=== PATIENT | male | born 1980 | race Caucasian/White ===

== ENCOUNTER 2017-02-14 15:26 | Emergency (ER) | payer MEDICARE, OTHER ==
[~2017-02-14] VITALS: Ht 188 cm; Wt 111.3 kg
[~2017-02-14 15:26] MED LIST: CLON0.5T OR; DEPA250T2 OR; DEPA250T3 OR; DULERA INH; K-TA10TA OR; LAVITRA PO; LUNE2TAB OR; MAXA5TAB PO; MORP15TA4 OR; PERC5TAB8 PO; PROZ20CA OR; ROBA500T OR; tylenol pm PO
[2017-02-14 15:27] VITALS: BP 133/70
[2017-02-14] MEDS ORDERED: OXAY1TAB (15:40)
[2017-02-14] MEDS ORDERED: PROZ40CA PO (15:40)
[2017-02-14] MEDS ORDERED: ADDE10CA3 PO (15:40)
[2017-02-14] MEDS ORDERED: PRAV40TA2 PO (15:40)
[2017-02-14] MEDS ORDERED: BUPR300T34 PO (15:40)
[2017-02-14] MEDS ORDERED: TOPI200T7 PO (15:40)
[2017-02-14] MEDS ORDERED: OMEP40CA2 PO (15:40)
[2017-02-14] MEDS ORDERED: testosterone inj (15:40)
[2017-02-14] MEDS ORDERED: DIAZ10TA2 PO (15:42)
[2017-02-14] MEDS ORDERED: LATU80TA PO (15:42)
== END 2017-02-14 16:47 | disposition home or self-care (01) ==
LOC: M ED 15:26
DX: J02.9 Acute pharyngitis, unspecified (principal); F17.210 Nicotine dependence, cigarettes, uncomplicated

== ENCOUNTER 2017-07-19 18:12 | Emergency (ER) | payer MEDICARE, MEDICAID ==
[~2017-07-19] VITALS: Ht 188 cm; Wt 114.5 kg
[~2017-07-19 18:12] MED LIST changes: +ADDE10CA3 PO; +BUPR300T34 PO; +DIAZ10TA2 PO; +LATU80TA PO; +OMEP40CA2 PO; +OXAY1TAB; +PRAV40TA2 PO; +PROZ40CA PO; +TOPI200T7 PO; +testosterone inj
[2017-07-19] MEDS ORDERED: PROAAER10 INH (18:32)
[2017-07-19] MEDS ORDERED: TESTERONE IM (18:32)
[2017-07-19] MEDS ORDERED: [UNRECOGNIZED DRUG - OTHER] PO (18:32)
--- NOTE | 2017-07-19 21:20 | REPUSA ---
CT of the cervical spine Clinical history: Pain. Technique: Multiple axial CT images were obtained through the cervical spine without administration o f contrast. Coronal and sagittal 3-D reconstructed images were also obtained. Comparison: None. Findings: The cervical vertebral bodies are in satisfactory positioning and alignment. Reversal curvature the c ervical spine is noted, likely secondary to splinting from pain. No fractures or dislocations are dem onstrated. The odontoid process is intact. Intervertebral disc spaces are well-maintained. There is n o evidence of facet subluxation. The neural foramen appear grossly patent. The cervical cranial junct ion is intact. The cervical spinal canal demonstrates normal caliber and contour without evidence of spinal stenosis. The surrounding soft tissues are within normal limits. Impression: Unremarkable CT examination of the cervical spine.
[2017-07-19 22:12] VITALS: BP 126/52
== END 2017-07-19 22:13 | disposition home or self-care (01) ==
LOC: M ED 18:12
DX: M54.12 Radiculopathy, cervical region (principal); F33.9 Major depressive disorder, recurrent, unspecified; F41.9 Anxiety disorder, unspecified; F17.210 Nicotine dependence, cigarettes, uncomplicated; Z79.899 Other long term (current) drug therapy

== ENCOUNTER 2017-08-31 22:25 | Emergency (ER) | payer OTHER, MEDICARE, MEDICAID ==
[2017-08-31] MEDS: NS 1,000 ML IV (23:00)
[2017-08-31] MEDS ORDERED: ISOVUE-370 76% 100ML VIAL (Q9967) As Ordered (23:01)
[2017-08-31 23:21] LABS: BASO # 0.1 10^3/uL (0.0-0.2); BASO % 0.4 % (0.0-1.0); EOS # 0.2 10^3/uL (0.0-0.50); EOS % 1.6 % (0.0-3.0); HEMATOCRIT 45.5 % (42.0-52.0); HEMOGLOBIN 15.5 g/dl (14.0-18.0); IMMATURE GRANULOCYTE # 0.1 10^3/uL (0-0); IMMATURE GRANULOCYTE % 0.5 % (0-0); LYMPH # 2.2 10^3/uL (1.5-4.5); LYMPH % 17.9 % (24.0-44.0); MEAN CORPUSCULAR HEMOGLOBIN 30.1 pg (27.0-33.0); MEAN CORPUSCULAR HGB CONC 34.1 g/dl (32.0-36.5); MEAN CORPUSCULAR VOLUME 88.3 fl (80.0-96.0); MONO # 0.8 10^3/uL (0.0-0.8); MONO % 6.4 % (0.0-5.0); NEUTROPHILS # 9.1 10^3/uL (1.8-7.7); NEUTROPHILS % 73.2 % (36.0-66.0); PLATELET COUNT, AUTOMATED 193 10^3/uL (150-450); RED BLOOD COUNT 5.15 10^6/uL (4.30-6.10); RED CELL DISTRIBUTION WIDTH 13.7 % (11.5-14.5); WHITE BLOOD COUNT 12.5 10^3/uL (4.0-10.0)
[2017-08-31 23:33] LABS: INR 0.94; PROTHROMBIN TIME 12.7 SECONDS (12.4-14.5)
[2017-08-31 23:41] LABS: ALBUMIN 3.8 GM/DL (3.2-5.2); ALBUMIN/GLOBULIN RATIO 1.27 (1.00-1.93); ALKALINE PHOSPHATASE 109 U/L (45-117); ALT/SGPT 34 U/L (12-78); ANION GAP 7 MEQ/L (8-16); AST/SGOT 27 U/L (7-37); BILIRUBIN,DIRECT < 0.1 MG/DL (0.0-0.2); BILIRUBIN,TOTAL 0.4 MG/DL (0.2-1.0); BLOOD UREA NITROGEN 9 MG/DL (7-18); CALCIUM LEVEL 7.8 MG/DL (8.5-10.1); CARBON DIOXIDE LEVEL 27 MEQ/L (21-32); CHLORIDE LEVEL 105 MEQ/L (98-107); GLOMERULAR FILTRATION RATE > 60.0 (>60); GLUCOSE, FASTING 103 MG/DL (70-100); POTASSIUM SERUM 3.8 MEQ/L (3.5-5.1); SODIUM LEVEL 139 MEQ/L (136-145); TOTAL PROTEIN 6.8 GM/DL (6.4-8.2)
[2017-08-31 23:49] LABS: LIPASE 116 U/L (73-393)
[2017-09-01] MEDS: KETOROLAC 30 MG/ML VIAL (J1885) IV (00:15)
== END 2017-09-01 00:36 | disposition home or self-care (01) ==
LOC: M ED 09-01 00:36
DX: S16.1XXA Strain of muscle, fascia and tendon at neck level, initial encounter (principal); F17.200 Nicotine dependence, unspecified, uncomplicated; V49.40XA Driver injured in collision with unspecified motor vehicles in traffic accident, initial encounter; Y92.410 Unspecified street and highway as the place of occurrence of the external cause; Y93.89 Activity, other specified
CPT/HCPCS: Q9967

== ENCOUNTER 2017-09-18 11:32 | Emergency (ER) | payer MEDICARE, MEDICAID, OTHER ==
[2017-09-18] MEDS: KETOROLAC 60 MG/2 ML VIAL (J1885) IM (13:59)
[2017-09-18 14:05] LABS: BASO # 0.1 10^3/uL (0.0-0.2); BASO % 0.6 % (0.0-1.0); EOS # 0.2 10^3/uL (0.0-0.50); EOS % 1.8 % (0.0-3.0); HEMATOCRIT 47.6 % (42.0-52.0); HEMOGLOBIN 15.8 g/dl (14.0-18.0); IMMATURE GRANULOCYTE % 0.9 % (0-3.0); LYMPH # 2.6 10^3/uL (1.5-4.5); LYMPH % 25.3 % (24.0-44.0); MEAN CORPUSCULAR HEMOGLOBIN 29.4 pg (27.0-33.0); MEAN CORPUSCULAR HGB CONC 33.2 g/dl (32.0-36.5); MEAN CORPUSCULAR VOLUME 88.6 fl (80.0-96.0); MONO # 0.8 10^3/uL (0.0-0.8); MONO % 7.7 % (0.0-5.0); NEUTROPHILS # 6.6 10^3/uL (1.8-7.7); NEUTROPHILS % 63.7 % (36.0-66.0); PLATELET COUNT, AUTOMATED 206 10^3/uL (150-450); RED BLOOD COUNT 5.37 10^6/uL (4.30-6.10); RED CELL DISTRIBUTION WIDTH 13.5 % (11.5-14.5); WHITE BLOOD COUNT 10.4 10^3/uL (4.0-10.0)
[2017-09-18 14:23] LABS: ANION GAP 6 MEQ/L (8-16); BLOOD UREA NITROGEN 8 MG/DL (7-18); CALCIUM LEVEL 8.6 MG/DL (8.5-10.1); CARBON DIOXIDE LEVEL 29 MEQ/L (21-32); CHLORIDE LEVEL 106 MEQ/L (98-107); CREATININE FOR GFR 1.23 MG/DL (0.70-1.30); GLOMERULAR FILTRATION RATE > 60.0 (>60); GLUCOSE, FASTING 77 MG/DL (70-100); POTASSIUM SERUM 3.7 MEQ/L (3.5-5.1); SODIUM LEVEL 141 MEQ/L (136-145)
== END 2017-09-18 16:01 | disposition home or self-care (01) ==
LOC: M ED 11:32
DX: S39.012A Strain of muscle, fascia and tendon of lower back, initial encounter (principal); L03.312 Cellulitis of back [any part except buttock and flank]; X50.0XXA Overexertion from strenuous movement or load, initial encounter; Y92.9 Unspecified place or not applicable; Y93.89 Activity, other specified; I10 Essential (primary) hypertension; G89.29 Other chronic pain; M54.9 Dorsalgia, unspecified; M54.2 Cervicalgia; M25.519 Pain in unspecified shoulder; G43.909 Migraine, unspecified, not intractable, without status migrainosus; G47.30 Sleep apnea, unspecified; J45.909 Unspecified asthma, uncomplicated; K21.9 Gastro-esophageal reflux disease without esophagitis; F41.9 Anxiety disorder, unspecified; F32.9 Major depressive disorder, single episode, unspecified; F17.200 Nicotine dependence, unspecified, uncomplicated; Z79.899 Other long term (current) drug therapy
CPT/HCPCS: J1885

== ENCOUNTER 2018-01-05 08:48 | Day surgery (SDC) | payer MEDICARE, MEDICAID ==
[2018-01-05] MEDS: LR 1,000 ML IV (10:10)
[2018-01-05] MEDS ORDERED: ONDANSETRON 4MG/2ML VIAL (J2405) As Ordered (11:52)
[2018-01-05] MEDS ORDERED: fentaNYL 250 MCG/5 ML INJECTION (J3010) As Ordered (11:52)
[2018-01-05] MEDS ORDERED: dexameTHASONE 4 MG/ML 1ML VIAL (J1100) As Ordered (11:52)
[2018-01-05] MEDS ORDERED: MIDAZOLAM INJ 2 MG/2 ML VIAL (J2250) As Ordered (11:52)
[2018-01-05] MEDS ORDERED: ROCURONIUM BROMIDE 50 MG/5 ML VIAL As Ordered (11:52)
[2018-01-05] MEDS ORDERED: LIDOCAINE 2% INJ 100 MG/5 ML SDV (FOR ANES.) As Ordered (11:52)
[2018-01-05] MEDS ORDERED: PROPOFOL 200 MG/20 ML VIAL As Ordered (11:52)
[2018-01-05] MEDS: LIDOCAINE W/EPINEPHRINE 1% 20ML VIAL As Ordered (12:26)
[2018-01-05] MEDS ORDERED: GLYCOPYRROLATE INJ 0.2 MG/ML 2 ML VIAL As Ordered ×3 (12:28→12:40)
[2018-01-05] MEDS: EPINEPHrine 1MG/ML INJ 30ML MD-VIAL As Ordered (12:34)
[2018-01-05] MEDS ORDERED: NEOSTIGMINE 10 MG/10 ML VIAL (J2710) As Ordered (12:39)
[2018-01-05] MEDS ORDERED: HYDROCORTISONE 100 MG/2 ML VIAL (J1720) As Ordered (12:48)
[2018-01-05] MEDS ORDERED: ACETAMINOPH W/CODEINE #3 TAB UD PO (13:45)
[2018-01-05] MEDS ORDERED: fentaNYL 100 MCG/2 ML INJECTION (J3010) IV (13:45)
[2018-01-05] MEDS ORDERED: LR 1,000 ML IV ×2 (13:45)
[2018-01-05] MEDS ORDERED: ONDANSETRON 4MG/2ML VIAL (J2405) IV (13:45)
[2018-01-05] MEDS ORDERED: ALBUTEROL SULFATE 2.5 MG/0.5 ML INH NEB SOLN As Ordered (13:46)
[2018-01-05] MEDS: ALBUTEROL SULFATE 2.5 MG/0.5 ML INH NEB SOLN INH (13:47)
== END 2018-01-05 15:40 | disposition home or self-care (01) ==
LOC: M SDC 08:48
DX: J32.8 Other chronic sinusitis (principal); J45.909 Unspecified asthma, uncomplicated; G47.33 Obstructive sleep apnea (adult) (pediatric); M25.569 Pain in unspecified knee; F32.9 Major depressive disorder, single episode, unspecified; F41.9 Anxiety disorder, unspecified; M54.2 Cervicalgia; G89.29 Other chronic pain; S14.109S Unspecified injury at unspecified level of cervical spinal cord, sequela; M25.519 Pain in unspecified shoulder; M12.9 Arthropathy, unspecified; G43.909 Migraine, unspecified, not intractable, without status migrainosus; G62.9 Polyneuropathy, unspecified; E78.00 Pure hypercholesterolemia, unspecified; K21.9 Gastro-esophageal reflux disease without esophagitis; Z79.899 Other long term (current) drug therapy; Z72.0 Tobacco use
CPT/HCPCS: 30520

== ENCOUNTER → 2018-01-26 | Outpatient (CLI) | payer MEDICARE, MEDICAID ==
[2018-01-26 15:41] LABS: BASO # 0.1 10^3/uL (0.0-0.2); BASO % 0.5 % (0.0-1.0); EOS # 0.2 10^3/uL (0.0-0.50); HEMOGLOBIN 13.9 g/dl (13.5-17.5); IMMATURE GRANULOCYTE % 0.5 % (0-3.0); LYMPH # 2.3 10^3/uL (1.5-4.5); LYMPH % 23.4 % (24.0-44.0); MEAN CORPUSCULAR HEMOGLOBIN 29.5 pg (27.0-33.0); MEAN CORPUSCULAR HGB CONC 33.9 g/dl (32.0-36.5); MONO # 0.7 10^3/uL (0.0-0.8); MONO % 7.4 % (0.0-5.0); NEUTROPHILS # 6.6 10^3/uL (1.8-7.7); NEUTROPHILS % 66.2 % (36.0-66.0); PLATELET COUNT, AUTOMATED 237 10^3/uL (150-450); RED BLOOD COUNT 4.71 10^6/uL (4.30-6.10); RED CELL DISTRIBUTION WIDTH 12.9 % (11.5-14.5)
[2018-01-26 16:00] LABS: COLLAGEN ADP 104 SECONDS (56-103); COLLAGEN EPINEPHRINE > 300 SECONDS (74-162)
[2018-01-26 16:07] LABS: ALBUMIN 3.5 GM/DL (3.2-5.2); ALBUMIN/GLOBULIN RATIO 1.06 (1.00-1.93); ALKALINE PHOSPHATASE 118 U/L (45-117); ALT/SGPT 33 U/L (12-78); ANION GAP 8 MEQ/L (8-16); AST/SGOT 20 U/L (7-37); BILIRUBIN,TOTAL 0.3 MG/DL (0.2-1.0); BLOOD UREA NITROGEN 10 MG/DL (7-18); CALCIUM LEVEL 7.9 MG/DL (8.5-10.1); CARBON DIOXIDE LEVEL 27 MEQ/L (21-32); CHLORIDE LEVEL 107 MEQ/L (98-107); CREATININE FOR GFR 1.76 MG/DL (0.70-1.30); GLOMERULAR FILTRATION RATE 46.1 (>60); GLUCOSE, FASTING 131 MG/DL (70-100); POTASSIUM SERUM 3.7 MEQ/L (3.5-5.1); SODIUM LEVEL 142 MEQ/L (136-145); TOTAL PROTEIN 6.8 GM/DL (6.4-8.2)
[2018-01-26 16:18] LABS: INR 0.92; PARTIAL THROMBOPLASTIN TIME 27.6 SECONDS (25.4-37.6); PROTHROMBIN TIME 12.5 SECONDS (12.1-14.4)
== END ==
LOC: M LAB 15:04
DX: Z01.818 Encounter for other preprocedural examination (principal); R94.31 Abnormal electrocardiogram [ECG] [EKG]; Z79.01 Long term (current) use of anticoagulants; Z79.899 Other long term (current) drug therapy
CPT/HCPCS: 71046

== ENCOUNTER 2018-02-16 10:29 | Inpatient (IN) | payer MEDICARE, MEDICAID ==
[~2018-02-16 10:29] MED LIST changes: +**UNRESOLVED NON-FORMULARY MED ORDER XX; -ADDE10CA3 PO; -BUPR300T34 PO; -CLON0.5T OR; -DEPA250T2 OR; -DEPA250T3 OR; -DIAZ10TA2 PO; -DULERA INH; -K-TA10TA OR; -LATU80TA PO; -LAVITRA PO; -LUNE2TAB OR; -MAXA5TAB PO; -MORP15TA4 OR; -OMEP40CA2 PO; -OXAY1TAB; -PERC5TAB8 PO; -PRAV40TA2 PO; -PROZ20CA OR; -PROZ40CA PO; -ROBA500T OR; -TOPI200T7 PO; -testosterone inj; -tylenol pm PO
[2018-02-16] MEDS ORDERED: LR 1,000 ML IV (10:45)
[2018-02-16] MEDS ORDERED: LIDOCAINE 1% MDV 20ML VIAL SQ (10:45)
[2018-02-16] MEDS ORDERED: MIDAZOLAM INJ 2 MG/2 ML VIAL (J2250) As Ordered (12:50)
[2018-02-16] MEDS ORDERED: fentaNYL 100 MCG/2 ML INJECTION (J3010) As Ordered ×2 (12:51→15:45)
[2018-02-16] MEDS ORDERED: ROCURONIUM BROMIDE 50 MG/5 ML VIAL As Ordered (12:55)
[2018-02-16] MEDS ORDERED: LIDOCAINE 2% INJ 100 MG/5 ML SDV (FOR ANES.) As Ordered (12:56)
[2018-02-16] MEDS ORDERED: PROPOFOL 200 MG/20 ML VIAL As Ordered ×13 (12:56→16:38)
[2018-02-16] MEDS ORDERED: REMIFENTANIL 1MG 3ML VIAL As Ordered ×3 (12:57→16:37)
[2018-02-16] MEDS ORDERED: dexameTHASONE 4 MG/ML 1ML VIAL (J1100) As Ordered ×2 (13:51)
[2018-02-16] MEDS ORDERED: HYDROmorphone HCL 2 MG/ML 1ML VIAL (J1170) As Ordered (14:01)
[2018-02-16] MEDS: BACITRACIN PWD 50,000 UNITS VIAL As Ordered (14:20)
[2018-02-16] MEDS: THROMBIN SOLN 20,000 UNITS KIT As Ordered (15:10)
[2018-02-16] MEDS ORDERED: ONDANSETRON 4MG/2ML VIAL (J2405) As Ordered (15:26)
[2018-02-16] MEDS: methylPREDNISolone SUSP 40 MG/ML (DEPO-medrol) VIAL (J1030) As Ordered (17:49)
[2018-02-16] MEDS ORDERED: ACETAMINOPHEN TAB 650MG DOSE (2X325MG) PO (19:00)
[2018-02-16] MEDS ORDERED: ONDANSETRON 4MG/2ML VIAL (J2405) IV ×2 (19:00→20:00)
[2018-02-16] MEDS: NORCO, ANEXSIA 5/325MG TABLET (HYDROcodone/ACETAMINOPHEN) PO ×2 (19:25→19:55)
[2018-02-16] MEDS: LR 1,000 ML IV (20:00)
[2018-02-16] MEDS ORDERED: fentaNYL 100 MCG/2 ML INJECTION (J3010) IV (20:00)
[2018-02-16] MEDS: KCL 20MEQ IN D5/0.45NS 1000ML 1,000 ML IV (20:43)
[2018-02-16] MEDS: ceFAZolin SOD 1 GM in D5W MINI-BAG PLUS 50 ML IV (20:44)
[2018-02-16] MEDS: ADDERALL 5 MG TAB PO (21:00)
[2018-02-16] MEDS: MORPHINE 4 MG/ML 1ML VIAL/SYRINGE (J2270) IV (21:51)
[2018-02-16] MEDS: ALBUTEROL 90 MCG/ACT 8GM HFA INHALER INH (23:21)
[2018-02-17] MEDS ORDERED: ALBUTEROL 90 MCG/ACT 8GM HFA INHALER INH
[2018-02-17] MEDS: NORCO, ANEXSIA 5/325MG TABLET (HYDROcodone/ACETAMINOPHEN) PO ×3 (00:08→08:49)
[2018-02-17] MEDS: FLUTICASONE PROP 0.05% NASAL SPRAY 16 GM (FLONASE) NARES ×2 (00:08→08:45)
[2018-02-17 00:40] LABS: ANION GAP 9 MEQ/L (8-16); BLOOD UREA NITROGEN 11 MG/DL (7-18); CALCIUM LEVEL 8.4 MG/DL (8.5-10.1); CARBON DIOXIDE LEVEL 24 MEQ/L (21-32); CHLORIDE LEVEL 108 MEQ/L (98-107); CREATININE FOR GFR 1.66 MG/DL (0.70-1.30); GLOMERULAR FILTRATION RATE 49.3 (>60); GLUCOSE, FASTING 198 MG/DL (70-100); POTASSIUM SERUM 3.9 MEQ/L (3.5-5.1); SODIUM LEVEL 141 MEQ/L (136-145)
[2018-02-17] MEDS: MORPHINE 4 MG/ML 1ML VIAL/SYRINGE (J2270) IV ×2 (02:25→06:28)
[2018-02-17] MEDS: ceFAZolin SOD 1 GM in D5W MINI-BAG PLUS 50 ML IV ×2 (02:25→08:42)
[2018-02-17] MEDS: KCL 20MEQ IN D5/0.45NS 1000ML 1,000 ML IV ×2 (03:00→10:23)
[2018-02-17] MEDS: OMEPRAZOLE 20 MG CAP PO (08:45)
[2018-02-17] MEDS: TOPIRAMATE (TopAMAX) 25 MG TAB PO (08:47)
[2018-02-17] MEDS: buPROPion **XL** TABLET 150MG (WELLBUTRIN XL) PO (08:48)
[2018-02-17] MEDS: ADDERALL 5 MG TAB PO (08:48)
[2018-02-17] MEDS: ATENOLOL 25 MG TAB PO (08:49)
[2018-02-17] MEDS: FLUoxetine 20 MG CAP PO (08:49)
[2018-02-17] MEDS: POTASSIUM CHLORIDE 10 MEQ SR TABLET PO (08:50)
== END 2018-02-17 13:35 | disposition home or self-care (01) | DRG 473 ==
LOC: M OR 10:29 → M MS5PR 20:04
PROC: 0RG20K0 Fusion of 2 or more Cervical Vertebral Joints with Nonautologous Tissue Substitute, Anterior Approach, Anterior Column, Open Approach (ICD-10-PCS; principal; 2018-02-16 12:30)
PROC: 00NW0ZZ Release Cervical Spinal Cord, Open Approach (ICD-10-PCS; 2018-02-16 12:30)
PROC: 0RB30ZZ Excision of Cervical Vertebral Disc, Open Approach (ICD-10-PCS; 2018-02-16 12:30)
DX: M47.22 Other spondylosis with radiculopathy, cervical region (principal); M47.12 Other spondylosis with myelopathy, cervical region; J45.909 Unspecified asthma, uncomplicated; I10 Essential (primary) hypertension; K21.9 Gastro-esophageal reflux disease without esophagitis; G44.1 Vascular headache, not elsewhere classified; G56.23 Lesion of ulnar nerve, bilateral upper limbs; M54.81 Occipital neuralgia; G43.909 Migraine, unspecified, not intractable, without status migrainosus; F41.9 Anxiety disorder, unspecified; F32.9 Major depressive disorder, single episode, unspecified; Z87.891 Personal history of nicotine dependence; Z79.899 Other long term (current) drug therapy

== ENCOUNTER 2018-04-12 00:15 | Emergency (ER) | payer MEDICARE, MEDICAID, OTHER ==
[2018-04-12 00:40] LABS: BASO # 0.1 10^3/uL (0.0-0.2); BASO % 0.8 % (0.0-1.0); EOS # 0.2 10^3/uL (0.0-0.50); HEMATOCRIT 42.1 % (42.0-52.0); HEMOGLOBIN 14.5 g/dl (13.5-17.5); IMMATURE GRANULOCYTE % 0.7 % (0-3.0); LYMPH # 2.9 10^3/uL (1.5-4.5); LYMPH % 28.1 % (24.0-44.0); MEAN CORPUSCULAR HGB CONC 34.4 g/dl (32.0-36.5); MONO # 0.7 10^3/uL (0.0-0.8); MONO % 6.4 % (0.0-5.0); NEUTROPHILS # 6.4 10^3/uL (1.8-7.7); PLATELET COUNT, AUTOMATED 237 10^3/uL (150-450); RED BLOOD COUNT 4.84 10^6/uL (4.30-6.10); RED CELL DISTRIBUTION WIDTH 13.1 % (11.5-14.5); WHITE BLOOD COUNT 10.4 10^3/uL (4.0-10.0)
[2018-04-12 01:13] LABS: ANION GAP 8 MEQ/L (8-16); BLOOD UREA NITROGEN 17 MG/DL (7-18); CALCIUM LEVEL 8.7 MG/DL (8.5-10.1); CARBON DIOXIDE LEVEL 25 MEQ/L (21-32); CHLORIDE LEVEL 106 MEQ/L (98-107); CPK CREATINE PHOSPHOKINASE 268 U/L (39-308); CREATININE FOR GFR 1.51 MG/DL (0.70-1.30); GLUCOSE, FASTING 129 MG/DL (70-100); MB/CK RELATIVE INDEX 0.67 (< OR =4); POTASSIUM SERUM 3.7 MEQ/L (3.5-5.1); SODIUM LEVEL 139 MEQ/L (136-145); TROPONIN I < 0.02 NG/ML (< 0.10)
[2018-04-12] MEDS: KETOROLAC 30 MG/ML VIAL (J1885) IV (01:30)
[2018-04-12] MEDS ORDERED: ISOVUE-370 76% 100ML VIAL (Q9967) As Ordered (01:41)
== END 2018-04-12 03:53 | disposition home or self-care (01) ==
LOC: M ED 00:15
DX: M54.2 Cervicalgia (principal); R07.89 Other chest pain; G89.29 Other chronic pain; R91.8 Other nonspecific abnormal finding of lung field; Z79.899 Other long term (current) drug therapy
CPT/HCPCS: Q9967

== ENCOUNTER → 2018-06-23 | Outpatient (CLI) | payer MEDICARE, MEDICAID | LOC: M SLEEP 20:00 | DX: G47.33 Obstructive sleep apnea (adult) (pediatric) (principal) | CPT/HCPCS: 95811 ==

== ENCOUNTER → 2018-06-27 | Outpatient (CLI) | payer MEDICARE, MEDICAID ==
[~2018-06-27] MED LIST changes: -**UNRESOLVED NON-FORMULARY MED ORDER XX; +E-Z-GAS II EFFERVESCENT PACKET (SODIUM BICARB./CITRIC ACID/SIMETHICONE) As Ordered; +E-Z-HD 98% w/w 340GM SUSP BTL As Ordered; +E-Z-PAQUE 96% w/w SUSP 176GM BTL As Ordered
== END ==
LOC: M RAD 09:11
DX: K21.9 Gastro-esophageal reflux disease without esophagitis (principal)
CPT/HCPCS: 74220

== ENCOUNTER → 2018-11-09 | Outpatient (CLI) | payer MEDICARE, MEDICAID, OTHER ==
[~2018-11-09] MED LIST changes: +ADDE10CA3 PO; +ALPRPOW PO; +ATEN25TA PO; +BACT800T5 PO; +BUPR10TASR PO; +BUPR300T34 PO; +CIPR1TAB20 PO; +CLON0.5T OR; +CYCL10TA PO; +D31000CA4 PO; +DEPA250T2 OR; +DEPA250T3 OR; +DIAZ10TA2 PO; +DIAZ2TAB PO; +DULERA INH; -E-Z-GAS II EFFERVESCENT PACKET (SODIUM BICARB./CITRIC ACID/SIMETHICONE) As Ordered; -E-Z-HD 98% w/w 340GM SUSP BTL As Ordered; -E-Z-PAQUE 96% w/w SUSP 176GM BTL As Ordered; +FLON1SPR; +IBUP-1022 PO; +K-TA10TA OR; +K-TA10TA2 PO; +LATU80TA PO; +LAVITRA PO; +LUNE2TAB OR; +MAXA5TAB PO; +MORP15TA4 OR; +NAPR-837 PO; +NORC1TAB7 PO; +OMEP40CA2 PO; +OXAY1TAB; +OXYC10TA3 PO; +PERC5TAB8 PO; +PRAV40TA2 PO; +PRED20TA PO; +PROAAER10 INH; +PROZ20CA OR; +PROZ40CA PO; +RIZA10TA4 PO; +ROBA500T OR; +TEST1INJ3 IM; +TESTERONE IM; +TIZA2CAP PO; +TIZA4CAP PO; +TOPI1CAP4 PO; +TOPI200T7 PO; +VIAG100T PO; +[UNRECOGNIZED DRUG - OTHER] PO; +testosterone inj; +tylenol pm PO
[2018-11-09 13:31] LABS: BASO # 0.1 10^3/uL (0.0-0.2); BASO % 0.8 % (0.0-1.0); EOS # 0.2 10^3/uL (0.0-0.50); EOS % 2.4 % (0.0-3.0); HEMATOCRIT 46.8 % (42.0-52.0); LYMPH # 2.9 10^3/uL (1.5-4.5); LYMPH % 31.5 % (24.0-44.0); MEAN CORPUSCULAR HEMOGLOBIN 29.7 pg (27.0-33.0); MEAN CORPUSCULAR HGB CONC 34.2 g/dl (32.0-36.5); MONO # 0.8 10^3/uL (0.0-0.8); MONO % 8.8 % (0.0-5.0); NEUTROPHILS # 5.1 10^3/uL (1.8-7.7); NEUTROPHILS % 55.7 % (36.0-66.0); PLATELET COUNT, AUTOMATED 211 10^3/uL (150-450); RED BLOOD COUNT 5.38 10^6/uL (4.30-6.10); WHITE BLOOD COUNT 9.2 10^3/uL (4.0-10.0)
[2018-11-09 14:06] LABS: ALBUMIN 3.9 GM/DL (3.2-5.2); BILIRUBIN,TOTAL 0.3 MG/DL (0.2-1.0); CALCIUM LEVEL 8.8 MG/DL (8.5-10.1); CREATININE FOR GFR 1.62 MG/DL (0.70-1.30); GLOMERULAR FILTRATION RATE 50.5 (>60); POTASSIUM SERUM 3.9 MEQ/L (3.5-5.1); TOTAL PROTEIN 6.9 GM/DL (6.4-8.2)
== END ==
LOC: M LAB 13:03
PROVIDERS: ATTEND Nurse Practitioner Family
DX: E78.2 Mixed hyperlipidemia (principal); I10 Essential (primary) hypertension

== ENCOUNTER → 2019-05-03 | Outpatient (REF) | payer MEDICARE, MEDICAID ==
[~2019-05-03] MED LIST changes: -OMEP40CA2 PO; +OMEP40CA97 PO; -RIZA10TA4 PO; +RIZA10TA58 PO
== END ==
LOC: M SFHCLERA 13:21
PROVIDERS: ATTEND Physician Assistant
DX: R11.10 Vomiting, unspecified (principal)
CPT/HCPCS: 87177; 87507; G0463

== ENCOUNTER 2019-06-08 20:53 | Emergency (ER) | payer MEDICARE, MEDICAID ==
[~2019-06-08] VITALS: Ht 190.5 cm; Wt 113.5 kg
[2019-06-08] MEDS ORDERED: METH1CHW3 PO (21:26)
[2019-06-08] MEDS ORDERED: LIDOCAINE W/EPINEPHRINE 1% 20ML VIAL As Ordered ONE (21:44)
[2019-06-08] MEDS ORDERED: BUPIVACAINE HCL 0.5% 10 ML VIAL SC ONE (21:45)
[2019-06-08] MEDS ORDERED: CETACAINE SPRAY 5GM TOP ONE (21:45)
[2019-06-08] MEDS ORDERED: LIDOCAINE W/EPINEPHRINE 1% 20ML VIAL SC ONE (21:45)
[2019-06-08] MEDS ORDERED: AMOX875T2 (21:53)
[2019-06-08] MEDS ORDERED: MONT10TA2 (21:53)
[2019-06-08] MEDS ORDERED: OXYC10TA3 (21:53)
[2019-06-08] MEDS ORDERED: POTA1TAB23 PO (21:55)
[2019-06-08] MEDS ORDERED: VITA100T59 PO (21:55)
[2019-06-08] MEDS ORDERED: ESSE250T PO (21:55)
[2019-06-08 22:44] VITALS: BP 112/68
== END 2019-06-08 22:47 | disposition home or self-care (01) ==
LOC: M ED 20:53
DX: S02.5XXA Fracture of tooth (traumatic), initial encounter for closed fracture (principal); X58.XXXA Exposure to other specified factors, initial encounter; Z79.2 Long term (current) use of antibiotics; Z79.51 Long term (current) use of inhaled steroids; Z79.891 Long term (current) use of opiate analgesic; Z79.899 Other long term (current) drug therapy

== ENCOUNTER 2019-07-28 18:29 | Emergency (ER) | payer MEDICARE, MEDICAID ==
[~2019-07-28] VITALS: Ht 190.5 cm; Wt 105.9 kg
[~2019-07-28 18:29] MED LIST changes: +AMOX875T2; +ESSE250T PO; -FLON1SPR; +FLON1SPR NARES; +METH1CHW3 PO; +MONT10TA2 PO; +POTA1TAB23 PO; +VITA100T59 PO
[2019-07-28 19:47] LABS: HEMATOCRIT 49.1 % (42.0-52.0); HEMOGLOBIN 16.1 g/dl (13.5-17.5); MEAN CORPUSCULAR HEMOGLOBIN 30.3 pg (27.0-33.0); MEAN CORPUSCULAR HGB CONC 32.8 g/dl (32.0-36.5); MEAN CORPUSCULAR VOLUME 92.3 fl (80.0-96.0); PLATELET COUNT, AUTOMATED 225 10^3/uL (150-450); RED BLOOD COUNT 5.32 10^6/uL (4.30-6.10); WHITE BLOOD COUNT 8.8 10^3/uL (4.0-10.0)
[2019-07-28 20:12] LABS: AMPHETAMINES LEVEL URINE NEGATIVE (NEGATIVE); BARBITURATES URINE NEGATIVE (NEGATIVE); BENZODIAZEPINES URINE POSITIVE (NEGATIVE); CANNABINOIDS URINE NEGATIVE (NEGATIVE); COCAINE METABOLITE URINE NEGATIVE (NEGATIVE); METHADONE URINE NEGATIVE (NEGATIVE); OPIATES URINE NEGATIVE (NEGATIVE); PHENCYCLIDINE URINE NEGATIVE (NEGATIVE)
[2019-07-28 20:19] LABS: ACETAMINOPHEN LEVEL < 2.0 UG/ML (10.0-30.0); ALBUMIN 3.9 GM/DL (3.2-5.2); ALT/SGPT 23 U/L (12-78); BILIRUBIN,DIRECT < 0.1 MG/DL (0.0-0.2); BILIRUBIN,TOTAL 0.3 MG/DL (0.2-1.0); BLOOD UREA NITROGEN 5 MG/DL (7-18); CALCIUM LEVEL 8.3 MG/DL (8.5-10.1); CARBON DIOXIDE LEVEL 23 MEQ/L (21-32); CHLORIDE LEVEL 110 MEQ/L (98-107); CREATININE FOR GFR 1.21 MG/DL (0.70-1.30); ETHYL ALCOHOL (ETHANOL) < 0.003 % (0.000-0.010); GLOMERULAR FILTRATION RATE > 60.0 (>60); GLUCOSE, FASTING 82 MG/DL (70-100); POTASSIUM SERUM 3.7 MEQ/L (3.5-5.1); SALICYLATE LEVEL 2.9 MG/DL (5.0-30.0); SODIUM LEVEL 142 MEQ/L (136-145); TOTAL PROTEIN 7.1 GM/DL (6.4-8.2)
[2019-07-29] MEDS ORDERED: DIAZ10TA2 PO (09:05)
[2019-07-29] MEDS ORDERED: TOPI50TA9 PO ×2 (09:05)
[2019-07-29] MEDS ORDERED: OMEP-218 PO (09:05)
[2019-07-29] MEDS ORDERED: POTA10TA17 PO (09:05)
[2019-07-29] MEDS ORDERED: ASCO500T PO (09:05)
[2019-07-29] MEDS ORDERED: VITA100066 PO (09:05)
[2019-07-29] MEDS ORDERED: METH-1022 PO (09:05)
[2019-07-29] MEDS ORDERED: MONTELUKAST 10 MG TAB PO ONE (09:45)
[2019-07-29] MEDS ORDERED: VITAMIN D 1,000 INTERNATIONAL UNITS TABLET PO ONE (09:45)
[2019-07-29] MEDS ORDERED: METHYLPHENIDATE 5 MG TAB PO ONE ×2 (09:45→21:00)
[2019-07-29] MEDS ORDERED: ASCORBIC ACID 500 MG TAB PO ONE (09:45)
[2019-07-29] MEDS ORDERED: FLUoxetine 20 MG CAP PO ONE (09:45)
[2019-07-29] MEDS ORDERED: atenoloL 25 MG TAB PO ONE ×2 (09:45→21:00)
[2019-07-29] MEDS ORDERED: POTASSIUM CHLORIDE 10 MEQ SR TABLET PO ONE (09:45)
[2019-07-29] MEDS ORDERED: TOPIRAMATE (TopAMAX) 25 MG TAB PO ONE ×3 (09:45→21:00)
[2019-07-29] MEDS ORDERED: buPROPion **XL** TABLET 150MG (WELLBUTRIN XL) PO ONE (09:45)
[2019-07-29] MEDS ORDERED: OMEPRAZOLE 20 MG CAP PO ONE ×2 (09:45→21:00)
--- NOTE | 2019-07-29 15:45 | ECGEPIP ---
[facility] - ED Test Date: 2019-07-28 Pat Name: NARA MCCARTY Department: Room: - Gender: Male [facility] Director: jeevan : 1980 Requested By: MOUNA Shepherd Order Number: [id number] Reading MD: Kirk Kan Measurements Intervals [place]erson Rate: 68 P: 65 MT: 176 QRS: 72 QRSD: 100 T: 23 QT: 368 QTc: 393 Interpretive Statements SINUS RHYTHM WITH SINUS ARRHYTHMIA INCOMPLETE RIGHT BUNDLE BRANCH BLOCK NSTTW ABNORMALITIES SIMILAR TO 04/12/18 Electronically Signed on 07-29-2019 15:44:54 EST by Kirk Kan
[2019-07-29 16:17] VITALS: BP 134/81
== END 2019-07-29 16:19 | disposition short-term general hospital (02) ==
LOC: M ED 18:29
DX: R45.851 Suicidal ideations (principal); J45.909 Unspecified asthma, uncomplicated; F33.9 Major depressive disorder, recurrent, unspecified; R56.9 Unspecified convulsions; Z79.899 Other long term (current) drug therapy; F17.210 Nicotine dependence, cigarettes, uncomplicated
CPT/HCPCS: 36415; 80048; 80076; 80307; 81001; 84443; 85027; 87086; 93005; 99285; G0480

== ENCOUNTER 2020-03-02 18:41 | Emergency (ER) | payer MEDICARE, OTHER, MEDICAID ==
[~2020-03-02 18:41] MED LIST changes: +ASCO500T PO; -BUPR300T34 PO; +BUPR300T92 PO; +CYCL-707 PO; -CYCL10TA PO; +METH-1022 PO; -MONT10TA2 PO; +MONT10TA4 PO; +OMEP-218 PO; +POTA10TA17 PO; +TOPI50TA9 PO; +VITA100066 PO
== END 2020-03-02 19:55 | disposition home or self-care (01) ==
LOC: M ED 18:41
DX: L03.115 Cellulitis of right lower limb (principal); L97.819 Non-pressure chronic ulcer of other part of right lower leg with unspecified severity; J45.909 Unspecified asthma, uncomplicated; G62.9 Polyneuropathy, unspecified; K21.9 Gastro-esophageal reflux disease without esophagitis; Z79.899 Other long term (current) drug therapy; F17.210 Nicotine dependence, cigarettes, uncomplicated

== ENCOUNTER 2020-10-07 14:52 | Emergency (ER) | payer MEDICARE, OTHER, MEDICAID ==
[~2020-10-07] VITALS: Ht 188 cm; Wt 104.1 kg
[~2020-10-07 14:52] MED LIST changes: +MONT10TA10 PO; -MONT10TA4 PO
[2020-10-07 14:53] VITALS: BP 132/80
[2020-10-07] MEDS ORDERED: ASPI-255 PO (15:02)
[2020-10-07] MEDS ORDERED: diazePAM 5MG TABLET PO ONE (16:10)
[2020-10-07] MEDS ORDERED: LIDOCAINE 4% CREAM 5GM (LMX4) TOP ONE (16:10)
[2020-10-07] MEDS ORDERED: traMADol 50 MG TAB PO ONE (16:10)
--- NOTE | 2020-10-07 16:38 | REP ---
INDICATION: chronic neck pain, worse last month, C5-C7 fusion. COMPARISON: Comparison CT study of the cervical spine March 08, 2018.. TECHNIQUE: Helical scanning is acquired and overlapping 2 mm high resolution axial images were generated and reviewed at bone and soft tissue window settings. Coronal and sagittal multiplanar re-formations images are generated. FINDINGS: There is straightening of the normal cervical lordosis. Cervical vertebral body heights are preserved. Alignment is otherwise normal. Patient is status post ventral discectomy and fusion plating across the C5 through C7 levels. Good bony fusion at the C5-6 and C6-7 disc spaces is observed. There is uncovertebral spurring visible left greater than right at C5-6 producing bilateral neural foraminal narrowing. Minimal uncovertebral spurring is present bilaterally at C6-7. No bony destructive lesion is seen. No extra-spinal abnormality is observed. There is no evidence of perispinal or intraspinal hematoma.. IMPRESSION: No traumatic abnormality noted. Straightening. Status post C5 through C7 ventral discectomy and fusion plating. Degenerative disc spurring noted at C4-5. Bilateral C5-6 uncovertebral spurring is noted producing some neural foraminal narrowing.. <Electronically signed by Melquiades Carroll > 10/07/20 [id number]
[2020-10-07] MEDS ORDERED: BACL10TA2 PO (18:14)
[2020-10-07] MEDS ORDERED: PERC5TAB12 PO (18:14)
== END 2020-10-07 18:30 | disposition home or self-care (01) ==
LOC: M ED 14:52
DX: G89.29 Other chronic pain (principal); M54.2 Cervicalgia; I10 Essential (primary) hypertension; J45.909 Unspecified asthma, uncomplicated; E78.5 Hyperlipidemia, unspecified; K21.9 Gastro-esophageal reflux disease without esophagitis; Z98.1 Arthrodesis status; Z79.899 Other long term (current) drug therapy; Z79.82 Long term (current) use of aspirin; F17.210 Nicotine dependence, cigarettes, uncomplicated

== ENCOUNTER → 2021-01-09 | Outpatient (REF) | payer MEDICARE, OTHER, MEDICAID ==
[~2021-01-09] MED LIST changes: +ASPI-255 PO; +BACL10TA2 PO; +PERC5TAB12 PO
== END ==
LOC: M LAB REF 16:22
PROVIDERS: ATTEND Physician Assistant
DX: Z20.2 Contact with and (suspected) exposure to infections with a predominantly sexual mode of transmission (principal)

== ENCOUNTER 2021-03-17 10:42 | Emergency (ER) | payer MEDICARE, OTHER, MEDICAID ==
[~2021-03-17] VITALS: Ht 188 cm; Wt 95.5 kg
[~2021-03-17 10:42] MED LIST changes: +OMEP40CA4 PO; -OMEP40CA97 PO
[2021-03-17 12:35] LABS: BASO # 0.1 10^3/uL (0.0-0.2); BASO % 0.8 % (0.0-1.0); EOS # 0.1 10^3/uL (0.0-0.5); EOS % 0.9 % (0.0-3.0); HEMATOCRIT 49.6 % (42.0-52.0); HEMOGLOBIN 16.7 g/dl (13.5-17.5); LYMPH # 2.1 10^3/uL (1.5-5.0); LYMPH % 23.7 % (24.0-44.0); MEAN CORPUSCULAR HGB CONC 33.7 g/dl (32.0-36.5); MEAN CORPUSCULAR VOLUME 89.2 fl (80.0-96.0); MONO # 0.7 10^3/uL (0.0-0.8); NEUTROPHILS # 5.8 10^3/uL (1.5-8.5); NEUTROPHILS % 66.3 % (36.0-66.0); PLATELET COUNT, AUTOMATED 190 10^3/uL (150-450); RED BLOOD COUNT 5.56 10^6/uL (4.30-6.10); WHITE BLOOD COUNT 8.8 10^3/uL (4.0-10.0)
--- NOTE | 2021-03-17 12:38 | REP ---
INDICATION: Left 1 mcp pain COMPARISON: None. TECHNIQUE: Four views left 1st toe. FINDINGS: There is no evidence of acute fracture, dislocation, or intrinsic bone disease.The joint spaces are unremarkable. IMPRESSION: Negative exam left 1st toe. <Electronically signed by Pipe Devine > 03/17/21 [id number]
[2021-03-17] MEDS ORDERED: NAPR-885 PO (12:44)
[2021-03-17 13:04] VITALS: BP 131/89
== END 2021-03-17 13:08 | disposition home or self-care (01) ==
LOC: M ED 10:42
DX: M10.9 Gout, unspecified (principal); F33.9 Major depressive disorder, recurrent, unspecified; F41.9 Anxiety disorder, unspecified; F43.10 Post-traumatic stress disorder, unspecified; M51.9 Unspecified thoracic, thoracolumbar and lumbosacral intervertebral disc disorder; R56.9 Unspecified convulsions; Z79.899 Other long term (current) drug therapy; F17.210 Nicotine dependence, cigarettes, uncomplicated

== ENCOUNTER → 2021-11-05 | Outpatient (CLI) | payer MEDICARE, OTHER, MEDICAID ==
[~2021-11-05] MED LIST changes: -LATU80TA PO; +LATU80TA2 PO; +METH-1103 PO; -METH1CHW3 PO; -MONT10TA10 PO; +MONT10TA97 PO; +NAPR-885 PO; +OMEP-173 PO; -OMEP-218 PO
== END ==
LOC: M LABSMTC 09:30
PROVIDERS: ATTEND Anesthesiology
DX: Z01.818 Encounter for other preprocedural examination (principal); Z11.52 Encounter for screening for COVID-19

== ENCOUNTER 2021-11-10 09:44 | Day surgery (SDC) | payer MEDICARE, OTHER, MEDICAID ==
[~2021-11-10] VITALS: Ht 188 cm; Wt 101.1 kg
[~2021-11-10 09:44] MED LIST changes: +NS 1,000 ML IV ONE
[2021-11-10] MEDS ORDERED: LIDOCAINE 2% 100MG/5ML SDV (FOR ANES.) As Ordered ONE (10:12)
[2021-11-10] MEDS ORDERED: propofoL 500 MG/50 ML VIAL As Ordered ONE (10:12)
[2021-11-10] MEDS ORDERED: fentaNYL 100 MCG/2 ML INJECTION As Ordered ONE (10:13)
[2021-11-10 12:15] VITALS: BP 132/70
== END 2021-11-10 12:28 | disposition home or self-care (01) ==
LOC: M OPP 09:44
PROVIDERS: ATTEND Internal Medicine Gastroenterology
DX: K63.5 Polyp of colon (principal); K64.8 Other hemorrhoids; K92.1 Melena; R19.4 Change in bowel habit; K29.70 Gastritis, unspecified, without bleeding; K29.80 Duodenitis without bleeding; R10.13 Epigastric pain; R76.8 Other specified abnormal immunological findings in serum; G62.89 Other specified polyneuropathies; Z87.828 Personal history of other (healed) physical injury and trauma; Z79.899 Other long term (current) drug therapy; F17.210 Nicotine dependence, cigarettes, uncomplicated
CPT/HCPCS: 43239; 45385; 88305; J3010

== ENCOUNTER 2022-05-19 22:24 | Emergency (ER) | payer MEDICARE, MEDICAID ==
[~2022-05-19] VITALS: Ht 188 cm; Wt 104.5 kg
[~2022-05-19 22:24] MED LIST changes: +HYDR-3713 PO; +LIDO5DIS41 TD; -NS 1,000 ML IV ONE; +POTA-150 PO; -POTA10TA17 PO
[2022-05-19 22:25] VITALS: BP 138/89
[2022-05-19] MEDS ORDERED: RIZA10TA58 PO (22:43)
[2022-05-19] MEDS ORDERED: VITA500C24 PO (22:43)
[2022-05-19] MEDS ORDERED: AIMO70IN SC (22:43)
[2022-05-19] MEDS ORDERED: ASPI-1 PO (22:43)
[2022-05-19] MEDS ORDERED: STOO240C PO (22:43)
[2022-05-19] MEDS ORDERED: COLA100C5 PO (22:43)
[2022-05-19] MEDS ORDERED: OXYC-517 PO (22:43)
[2022-05-19] MEDS ORDERED: NARC1SPR NARES (22:43)
== END 2022-05-20 02:45 | disposition left against medical advice (07) ==
LOC: M ED 22:24
DX: Z53.21 Procedure and treatment not carried out due to patient leaving prior to being seen by health care provider (principal)

== ENCOUNTER 2022-07-23 03:16 | Emergency (ER) | payer MEDICARE, MEDICAID ==
[~2022-07-23] VITALS: Ht 188 cm; Wt 108.6 kg
[~2022-07-23 03:16] MED LIST changes: +AIMO70IN SC; +ASPI-1 PO; +COLA100C5 PO; +NARC1SPR NARES; +OXYC-517 PO; +STOO240C PO; +VITA500C24 PO
[2022-07-23] MEDS ORDERED: ACETAMINOPHEN 500 MG TAB PO ONE (03:35)
[2022-07-23 04:20] LABS: BASO % 0.3 % (0.0-1.0); EOS % 0.3 % (0.0-3.0); HEMATOCRIT 46.6 % (42.0-52.0); HEMOGLOBIN 15.9 g/dl (13.5-17.5); LYMPH % 7.9 % (24.0-44.0); MEAN CORPUSCULAR HEMOGLOBIN 29.7 pg (27.0-33.0); MEAN CORPUSCULAR HGB CONC 34.1 g/dl (32.0-36.5); MEAN CORPUSCULAR VOLUME 86.9 fl (80.0-96.0); MONO # 0.9 10^3/uL (0.0-0.8); MONO % 6.6 % (2.0-8.0); NEUTROPHILS # 11.2 10^3/uL (1.5-8.5); NEUTROPHILS % 84.4 % (36.0-66.0); PLATELET COUNT, AUTOMATED 177 10^3/uL (150-450); RED BLOOD COUNT 5.36 10^6/uL (4.30-6.10); WHITE BLOOD COUNT 13.2 10^3/uL (4.0-10.0)
[2022-07-23 04:37] LABS: AMYLASE 41 U/L (30-118)
[2022-07-23 04:38] LABS: ALBUMIN 3.9 G/DL (3.2-5.2); ALKALINE PHOSPHATASE 98 U/L (46-116); ALT/SGPT 23 U/L (7.0-40); AST/SGOT 23 U/L (<34); BILIRUBIN,DIRECT 0.3 MG/DL (<0.4); BILIRUBIN,TOTAL 0.8 MG/DL (0.3-1.2); BLOOD UREA NITROGEN 10 MG/DL (9-23); CARBON DIOXIDE LEVEL 27 MMOL/L (20-31); CHLORIDE LEVEL 103 MMOL/L (98-107); CK-MB VALUE MASS < 1.0 NG/ML (<3.6); CPK CREATINE PHOSPHOKINASE 168 U/L (46-171); CREATININE FOR GFR 0.94 MG/DL (0.70-1.30); GLOMERULAR FILTRATION RATE > 60.0 (>60); GLUCOSE, FASTING 112 MG/DL (60-100); MB/CK RELATIVE INDEX 0.59 (< OR =4); POTASSIUM SERUM 3.7 MMOL/L (3.5-5.1); SODIUM LEVEL 138 MMOL/L (136-145); TOTAL PROTEIN 6.8 G/DL (5.7-8.2)
[2022-07-23 04:45] LABS: RSV AMPLIFICATION NEGATIVE (NEGATIVE)
[2022-07-23] MEDS ORDERED: DEXT1TAB19 PO (06:29)
[2022-07-23] MEDS ORDERED: IBUP-1114 PO (06:29)
[2022-07-23] MEDS ORDERED: DICL1GEL3 TOP (06:29)
[2022-07-23] MEDS ORDERED: SING5CHW23 PO (06:29)
[2022-07-23] MEDS ORDERED: CENT1TAB2 PO (06:29)
[2022-07-23] MEDS ORDERED: FLON1SPR NARES (06:29)
[2022-07-23] MEDS ORDERED: PROHANCE 279.3MG/ML 15ML VIAL As Ordered ONE (09:10)
[2022-07-23] MEDS ORDERED: PROHANCE 279.3MG/ML 5ML VIAL As Ordered ONE (09:10)
[2022-07-23] MEDS ORDERED: PERCOCET 5MG/325MG TAB PO ONE (12:45)
[2022-07-23] MEDS ORDERED: LEVO750T14 PO (15:09)
[2022-07-23] MEDS ORDERED: LevoFLOXacin 750 MG TABLET PO ONE (15:15)
[2022-07-23 15:21] VITALS: BP 163/89
== END 2022-07-23 15:28 | disposition home or self-care (01) ==
LOC: M ED 03:16
DX: J95.89 Other postprocedural complications and disorders of respiratory system, not elsewhere classified (principal); J18.9 Pneumonia, unspecified organism; M43.22 Fusion of spine, cervical region; J45.909 Unspecified asthma, uncomplicated; E04.1 Nontoxic single thyroid nodule; Z79.82 Long term (current) use of aspirin; Z79.899 Other long term (current) drug therapy
CPT/HCPCS: 71045; 72156; 80048; 80076; 82150; 82550; 82553; 83605; 84484; 85025; 86140; 87040; 87631; 93005; 99285; A9576

== ENCOUNTER 2022-09-14 15:19 | Emergency (ER) | payer MEDICARE, MEDICAID ==
[~2022-09-14] VITALS: Ht 188 cm; Wt 107.3 kg
[~2022-09-14 15:19] MED LIST changes: +CENT1TAB2 PO; +DEXT1TAB19 PO; +DICL1GEL3 TOP; +IBUP-1114 PO; +LEVO750T14 PO; +SING5CHW23 PO
[2022-09-14 15:20] VITALS: BP 174/93
== END 2022-09-15 01:04 | disposition left against medical advice (07) ==
LOC: M ED 15:19
DX: Z53.21 Procedure and treatment not carried out due to patient leaving prior to being seen by health care provider (principal)